=== PATIENT | female | born 1980 | race Caucasian/White ===

== ENCOUNTER 2017-09-13 13:05 | Day surgery (SDC) | payer BC ==
[2017-09-13] VITALS (7 sets, daily range): BP systolic 144–166; BP diastolic 82–96; PULSE 93–109; TEMP 98–99
[~2017-09-13] VITALS: Ht 170.2 cm; Wt 77.4 kg
[~2017-09-13 13:05] MED LIST: FLEXERIL 1010 MG/TAB PO; FOLIC ACID800 MCG; FOLIC ACID800 MCG PO; INSULIN HUMA100 U/ML SC; LEVEMIR FLEX TOUCH P; MOTRIN 800800 MG/TAB PO; NORCO 325 MG-51 TAB PO; PREVIDENT DE; PRILOSEC 20MG20 MG PO; SYNTHROID0.125 MG/T PO; SYNTHROID0.137 MG PO
[2017-09-13] MEDS ORDERED: AMITRIPTYLINE H75 M1 PO (13:44)
[2017-09-13] MEDS ORDERED: PRENATAL MVI PO (13:45)
[2017-09-13] MEDS ORDERED: ACIDOPHILIS PO (13:45)
[2017-09-13] MEDS ORDERED: UROCIT-K 5540 MG/TAB PO (13:45)
[2017-09-13] MEDS ORDERED: PYRIDIUM 100MG100 MG PO (16:09)
[2017-09-13] MEDS ORDERED: NORCO 325 MG-51 TAB PO (16:10)
[2017-09-13] MEDS ORDERED: COLACE 100100 MG/CAP PO (16:11)
== END 2017-09-13 17:55 | disposition home or self-care (01) ==
LOC: SDCO 13:05
DX: R10.9 Unspecified abdominal pain (principal); K21.9 Gastro-esophageal reflux disease without esophagitis; F32.9 Major depressive disorder, single episode, unspecified; Z87.442 Personal history of urinary calculi; Z83.3 Family history of diabetes mellitus; Z82.49 Family history of ischemic heart disease and other diseases of the circulatory system
CPT/HCPCS: C1769; C2617; J0690; J1100; J2405; J2704; J3010; J7120; Q9967

== ENCOUNTER 2019-01-30 09:00 | Outpatient (RCR) | payer BC ==
[~2019-01-30 09:00] MED LIST changes: +ACIDOPHILIS PO; +AMITRIPTYLINE H75 M1 PO; +COLACE 100100 MG/CAP PO; +PRENATAL MVI PO; +PYRIDIUM 100MG100 MG PO; +UROCIT-K 5540 MG/TAB PO
== END 2019-03-19 | disposition still patient (30) ==
LOC: MKS.ESL.PT
DX: N39.3 Stress incontinence (female) (male) (principal)

== ENCOUNTER 2019-06-10 13:33 | Outpatient (RCR) | payer BC | END 2019-09-08 | disposition still patient (30) | LOC: MKS.ESL.PT | DX: N39.3 Stress incontinence (female) (male) (principal) ==

== ENCOUNTER → 2019-06-25 | Outpatient (CLI) | payer BC | LOC: MC.RAD 13:30 | DX: Z12.31 Encounter for screening mammogram for malignant neoplasm of breast (principal) ==

== ENCOUNTER → 2020-09-09 | Outpatient (CLI) | payer BC | LOC: MC.RAD 08-24 08:15 | DX: Z12.31 Encounter for screening mammogram for malignant neoplasm of breast (principal); N64.89 Other specified disorders of breast ==

== ENCOUNTER → 2020-09-16 | Outpatient (CLI) | payer BC | LOC: MC.RAD 08:58 | DX: N60.41 Mammary duct ectasia of right breast (principal); N64.89 Other specified disorders of breast ==

== ENCOUNTER → 2021-03-20 | Outpatient (CLI) | payer BC | LOC: MC.RAD 14:00 | DX: N60.41 Mammary duct ectasia of right breast (principal); N60.42 Mammary duct ectasia of left breast ==

== ENCOUNTER → 2021-11-24 | Outpatient (CLI) | payer BC | LOC: MC.RAD 09:55 | DX: Z12.31 Encounter for screening mammogram for malignant neoplasm of breast (principal) ==

== ENCOUNTER → 2024-02-19 | Outpatient (CLI) | payer BC | LOC: MC.RAD 07:36 | DX: Z12.31 Encounter for screening mammogram for malignant neoplasm of breast (principal) ==